=== PATIENT | male | born 1995 | race American Indian/Alaskan Native ===

== ENCOUNTER 2017-04-30 01:25 | Emergency (ER) | payer OTHER ==
[2017-04-30 02:38] VITALS: BP 124/83
--- NOTE | 2017-04-30 05:19 | Emergency Department Report ---
HPI - General Chief Complaint: Extremity Injury, Lower Time Seen by Provider: 04/30/17 05:04 - HPI HPI: She has a 22-year-old male with no prior medical history presents to ED complaining of right behind in the pain 2 days. Patient states [place] that the back of his right knee filter. Tender. The patient states he does not remember injuring or have any trauma to the leg. Patient states Tuesday he felt mass behind his knee. Patient states he was a bit tender to touch otherwise does not cause difficulty walking. No other problems He denies any active drainage, trauma to the knee, mostly associated, calf pain ED Past Medical Hx - Past Medical History Previous Medical History?: Yes Hx Asthma: Yes - Surgical History Past Surgical History?: Yes Hx Cholecystectomy: Yes - Social History Smoking Status: Current Every Day Smoker Substance Use Type: Marijuana - Medications Home Medications: Home Medications Medication Instructions Recorded Confirmed Last Taken Type Cephalexin [Keflex] 500 mg PO BID #12 capsule 04/30/17 Unknown Rx Ibuprofen [Motrin] 600 mg PO Q8H PRN #20 tablet 04/30/17 Unknown Rx ED Review of Systems ROS: Stated complaint: LEG INJURY Other details as noted in HPI Constitutional: denies: chills, fever Eyes: denies: eye pain, eye discharge, vision change ENT: denies: ear pain, throat pain Respiratory: denies: cough, shortness of breath, wheezing Cardiovascular: denies: chest pain, palpitations Endocrine: no symptoms reported Gastrointestinal: denies: abdominal pain, nausea, diarrhea Genitourinary: denies: urgency, dysuria Musculoskeletal: denies: back pain, joint swelling, arthralgia Skin: denies: rash, lesions Neurological: denies: headache, weakness, paresthesias Psychiatric: denies: anxiety, depression Hematological/Lymphatic: denies: easy bleeding, easy bruising Physical Exam - Physical Exam Vital Signs: Vital Signs 04/30/17 02:34 Temperature 98.5 F Pulse Rate 73 Respiratory 20 Rate Blood Pressure 124/83 [Right] O2 Sat by Pulse 100 Oximetry Physical Exam: GENERAL: Alert and oriented x3, no apparent distress, Normal Gait, atraumatic. HEAD: Head is normocephalic and a-traumatic. MOUTH:Mouth is well hydrated and without lesions. Tonsils nonerythematous or swollen, Uvula midline, Tongue not elevated. Mucous membranes are moist. Posterior pharynx clear, no exudate or lesions. Patent airways. NECK: Supple. Non edematous, No carotid bruits. No lymphadenopathy or thyromegaly. No C-spine tenderness LUNGS: Symetrical with respiration, No wheezing, no rales or crackles, CTAB. HEART: S1, S2 present, regular rate and rhythm without murmur, no rubs, no gallops. Non tender to palpation EXTREMITIES/MUSCULOSKELETAL: No cyanosis, clubbing, rash, lesions or edema. Full ROM bilaterally. UE/LE Pulses 2+ bilaterally. LE and UE 5+ strength bilaterally, small, 1 cm, mildly tender to palpation, erythematous, lump in the back of the knee, NEUROLOGIC: The patient is cooperative with no focal neurologic deficits. Cranial nerves II through XII are grossly intact. Normal speech. Normal sensation in bilateral upper and lower extremities, No loss of sensation, SKIN: Warm and dry, No lesions, No ulceration or induration present. ED Course Vital Signs 04/30/17 02:34 Temperature 98.5 F Pulse Rate 73 Respiratory 20 Rate Blood Pressure 124/83 [Right] O2 Sat by Pulse 100 Oximetry ED Medical Decision Making - Medical Decision Making 22-year-old male presents with insect bite/cellulitis behind any ED course: Discussed with patient to take medication as prescribed. Discussed the patient apply heat therapy 3 times a day. Discussed if worsening symptoms to return to ED Otherwise follow-up with her primary care physician. Vital signs are stable patient understands instructions given and states he will follow-up. Critical care attestation.: If time is entered above; I have spent that time in minutes in the direct care of this critically ill patient, excluding procedure time. ED Disposition Clinical Impression: Cellulitis Qualifiers: Site of cellulitis: extremity Site of cellulitis of extremity: lower extremity Laterality: right Qualified Code(s): L03.115 - Cellulitis of right lower limb Disposition: TO HOME OR SELFCARE Is pt being admited?: No Does the pt Need Aspirin: No Condition: Stable Instructions: Cellulitis (ED), Heat Pack Application (ED) Prescriptions: Cephalexin [Keflex] 500 mg PO BID #12 capsule Ibuprofen [Motrin] 600 mg PO Q8H PRN #20 tablet PRN Reason: Pain Referrals: PRIMARY CARE, [Primary Care Provider] - 3-5 Days [facility] [Outside] - 3-5 Days [facility] [Outside] - 3-5 Days Forms: Work/School Release Form, Accompanied Note Time of Disposition: 05:22
== END 2017-04-30 05:35 | disposition home or self-care (01) ==
LOC: ED 01:25
DX: L03.115 Cellulitis of right lower limb (principal); J45.909 Unspecified asthma, uncomplicated; F17.200 Nicotine dependence, unspecified, uncomplicated; F12.10 Cannabis abuse, uncomplicated
CPT/HCPCS: 99282